=== PATIENT | male | born 1980 | race Caucasian/White ===

== ENCOUNTER 2021-05-19 13:14 | Emergency (ER) | payer OTHER ==
[~2021-05-19] VITALS: Ht 180.3 cm; Wt 113.6 kg
[~2021-05-19 13:14] MED LIST: MOTRIN 800800 MG/TAB PO; NO HOME MEDICATIONS; NORCO 325 MG-7.1 TAB PO; PERCOCET 325 MG1 TA2 PO
[2021-05-19 13:43] VITALS: TEMP 98.4
[2021-05-19 18:20] VITALS: BP 145/90; PULSE 88
== END 2021-05-19 18:21 | disposition home or self-care (01) ==
LOC: COL.ER 13:14
DX: K40.90 Unilateral inguinal hernia, without obstruction or gangrene, not specified as recurrent (principal); I10 Essential (primary) hypertension; F17.200 Nicotine dependence, unspecified, uncomplicated
CPT/HCPCS: J1885

== ENCOUNTER 2021-09-06 16:42 | Emergency (ER) | payer OTHER ==
[~2021-09-06] VITALS: Ht 180.3 cm; Wt 109.1 kg
[2021-09-06 16:50] VITALS: TEMP 98.1
[2021-09-06 17:01] LABS: BASO # 0.1 K/mm3 (0.0-0.2); BASO % 0.6 % (0.0-2.0); EOS # 0.2 K/mm3 (0.0-0.7); EOS % 2.4 % (0-4.0); GRAN # 4.6 K/mm3 (1.4-6.5); GRAN % 54.5 % (42.2-75.2); HEMATOCRIT 46.3 % (42.0-52.0); HEMOGLOBIN 15.7 g/dl (13.5-18.0); LYMPH # 3.1 K/mm3 (1.2-3.4); MEAN CELL VOLUME 88 fl (80.0-100.0); MEAN CORPUSCULAR HEMOGLOBIN 30 pg (27.0-31.0); MEAN CORPUSCULAR HGB CONC 34 g/dl (33.0-37.0); MEAN PLATELET VOLUME 8.8 fl (7.4-10.4); MONO # 0.5 K/mm3 (0.1-0.6); MONO % 5.4 % (1.7-9.3); PLATELET COUNT 264 K/mm3 (130-400); RED BLOOD COUNT 5.29 M/mm3 (4.20-5.60); REDCELL DISTRIBUTION WIDTH-CV 13.1 % (11.5-14.5)
[2021-09-06] MEDS ORDERED: PROTONIX 40MG T40 MG PO (17:04)
[2021-09-06] MEDS ORDERED: COZAAR 50MG50 MG/TAB PO (17:04)
[2021-09-06 17:20] LABS: ALANINE AMINOTRANSFERASE 71 U/L (0-55); ALBUMIN 4.5 gm/dL (3.5-5.0); ALKALINE PHOSPHATASE 82 U/L (40-150); ANION GAP 12 mmol/L (7-16); AST,SGOT 33 U/L (5-34); BILIRUBIN,TOTAL 0.5 mg/dL (0.2-1.2); BLOOD UREA NITROGEN 6 mg/dL (9-21); CALCIUM 9.5 mg/dL (8.4-10.2); CARBON DIOXIDE 22 mmol/L (22-29); CHLORIDE 106 mmol/L (98-107); CREATININE, serum 1.01 mg/dL (0.72-1.25); GLUCOSE 107 mg/dL (70-99); POTASSIUM 4.1 mmol/L (3.5-4.5); SODIUM 140 mmol/L (136-145); TOTAL PROTEIN 7.2 gm/dL (6.2-8.1)
[2021-09-06 17:27] LABS: TROPONIN-I < 0.010 ng/mL (0.00-0.033)
[2021-09-06 18:04] VITALS: BP 135/89; PULSE 81
== END 2021-09-06 18:13 | disposition home or self-care (01) ==
LOC: COL.ER 16:42
PROVIDERS: Emergency Medicine
DX: R07.2 Precordial pain (principal); I10 Essential (primary) hypertension; K21.9 Gastro-esophageal reflux disease without esophagitis; Z79.899 Other long term (current) drug therapy